=== PATIENT | male | born 1940 | race Caucasian/White ===

== ENCOUNTER 2019-02-03 14:40 | Emergency (ER) | payer MEDICARE, OTHER ==
[~2019-02-03] VITALS: Ht 175.3 cm; Wt 90.7 kg
[~2019-02-03 14:40] MED LIST: ASPI-605 PO; DILT120T14 PO; ESOM40CA PO; FURO-144 PO; LUBI24CA5 PO; METF-440 PO; OXYC-454 PO; POTA20PA40 PO; ROSU10TA2 PO
--- NOTE | 2019-02-03 15:16 | NUR ---
PT CAME INTO ER STATING THAT HE TRIPPED ON HIS SHOE LACE IN FRONT OF HIS FRONT DOOR OF HIS HOUSE. PT IS STATING PAIN UNDER HIS ARMPIT ON THE RIB SIDE. PT IS AAOX4. AMBULATORY. NO SOB. NOT IN ANY DISTRESS. WILL CONTINUE TO MONITOR.
[2019-02-03] MEDS ORDERED: MORPHINE SULFATE INJ 2 MG/ML DISP.SYRIN ONE (15:27)
[2019-02-03] MEDS ORDERED: MORPHINE SULFATE INJ 4 MG/ML DISP.SYRIN ONE (15:28)
[2019-02-03] MEDS ORDERED: MORPHINE SULFATE INJ 2 MG/ML DISP.SYRIN IM ONE (15:30)
--- NOTE | 2019-02-03 16:50 | NUR ---
Patient discharged to home in stable condition. Written and verbal after care instructions given. Patient verbalizes understanding of instruction.
[2019-02-03 16:51] VITALS: BP 133/71
== END 2019-02-03 16:51 | disposition home or self-care (01) ==
LOC: ER 14:42
DX: S00.03XA Contusion of scalp, initial encounter (principal); S20.212A Contusion of left front wall of thorax, initial encounter; I10 Essential (primary) hypertension; E11.9 Type 2 diabetes mellitus without complications; Z98.890 Other specified postprocedural states; Z79.899 Other long term (current) drug therapy; Z79.84 Long term (current) use of oral hypoglycemic drugs; Z79.82 Long term (current) use of aspirin; W01.0XXA Fall on same level from slipping, tripping and stumbling without subsequent striking against object, initial encounter; Y93.89 Activity, other specified; Y92.89 Other specified places as the place of occurrence of the external cause; Y99.8 Other external cause status
CPT/HCPCS: 70450; 71100; 96372; 99284; J2270 ×2

== ENCOUNTER 2021-11-03 22:22 | Inpatient (IN) | payer MEDICARE, BC ==
[~2021-11-03] VITALS: Ht 175.3 cm; Wt 108.4 kg
[~2021-11-03 22:22] MED LIST changes: -OXYC-454 PO; +OXYC1TAB12 PO
--- NOTE | 2021-11-03 23:40 | NUR ---
[id number] FROM HOME C/O [facility] TRIP AND FALL HIT LEFT ELBOW WITH LAC. TDAP NOT UTD, - HEAD TRAUMA, - LOSS OF CONSCIOUSNESS AND NOT TAKING BLOOD THINNER. PATIENT IS ALERT, ORIENTED X4. VITALS CHECKED. DRESSING APPLIED TO AFFECTED AREA
--- NOTE | 2021-11-03 23:43 | NUR ---
SEEN AND EXAMINED BY DR CARRILLO AT BEDSIDE.
[2021-11-03] MEDS ORDERED: TDAP [DIPH/PERTUSSIS/TET] 0.5 ML VIAL IM ONE (23:45)
--- NOTE | 2021-11-03 23:47 | NUR ---
XRAY DONE AT BEDSIDE.
[2021-11-04] MEDS ORDERED: TDAP [DIPH/PERTUSSIS/TET] 0.5 ML VIAL IM ONE
[2021-11-04] MEDS ORDERED: HYDROCODONE/APAP 5/325MG TABLET PO ONE
[2021-11-04] MEDS ORDERED: HYDROCODONE/APAP 5/325MG TABLET ONE (00:04)
--- NOTE | 2021-11-04 01:00 | NUR ---
consent obtained for close reduction of left shoulder w/ moderated sedation
--- NOTE | 2021-11-04 01:03 | NUR ---
IV LINE ESTABLISHED, RAC20G
[2021-11-04] MEDS ORDERED: LIDOCAINE 1%-EPI 1:100,000 20 ML VIAL ONE (01:13)
--- NOTE | 2021-11-04 01:35 | NUR ---
CHATO [phone]. CALL WHEN PATIENT IS GETTING DISCHARGED.
[2021-11-04] MEDS ORDERED: PROPOFOL 20 ML IV ONE (01:59)
--- NOTE | 2021-11-04 02:02 | NUR ---
PATIENT FOR CLOSE REDUCTION OF LEFT SHOULDER UNDER MODERATE SEDATION. CONSENT SIGNED.
--- NOTE | 2021-11-04 02:04 | NUR ---
INITIAL VITALS CHECKED. BP 124/57mmHg, HR 61bpm, RR 20cpm ON OXYGEN INC VIA NC AT 2lpm SATURATING 97%
--- NOTE | 2021-11-04 02:05 | NUR ---
PROPOFOL 60MG IV PUSH GIVEN.
--- NOTE | 2021-11-04 02:05 | NUR ---
CLOSE REDUCTION ATTEMPTED BY DR CARRILLO. PATIENT BECAME HALF AWAKE AND TRYING TO RESIST.
--- NOTE | 2021-11-04 02:06 | NUR ---
ADDITIONAL 20MG OF PROPOFOL GIVEN. DR CARRILLO TRIED TO DO CLOSE REDUCTION AGAIN.
--- NOTE | 2021-11-04 02:08 | NUR ---
CLOSE REDUCTION UNSUCCESSFUL. DR CARRILLO DECIDED TO ADMIT THE PATIENT. LATEST VITALS BP 131/68mmHg, HR 59bpm, RR 18cpm SATURATING 96%.
--- NOTE | 2021-11-04 02:13 | NUR ---
Jose ayers in ED - 11/04/21 at 0214 by YANETH REPORT GIVEN TO [facility] [id number].
--- NOTE | 2021-11-04 02:27 | NUR ---
CALLED CHATO. MADE HER AWARE THAT WE WILL KEEP PT FOR ADMISSION. SHE IS OK WITH IT.
[2021-11-04] MEDS ORDERED: MAG HYDROX/AL HYDROX/SIMETH 30 ML UDC PO PRN (02:30)
[2021-11-04] MEDS ORDERED: ACETAMINOPHEN 325 MG TABLET PO PRN (02:30)
[2021-11-04] MEDS ORDERED: Z GUARD REMEDY 4 OZ OINT TP PRN (02:30)
[2021-11-04] MEDS ORDERED: PROPOFOL 200 MG/20 ML VIAL IV ONE (02:30)
[2021-11-04] MEDS ORDERED: MAGNESIUM HYDROXIDE 30 ML UDC PO PRN (02:30)
[2021-11-04] MEDS ORDERED: IV NS 0.9% 1,000 ML IV PRN (02:30)
--- NOTE | 2021-11-04 02:32 | NUR ---
PT IS AWAKE AND HUNGRY. SANDWICH OFFERED.
[2021-11-04 02:50] LABS: BASOPHILS % (AUTO) 0.2 % (0.0-2.0); EOSINOPHILS % (AUTO) 0.6 % (0.0-6.0); HEMATOCRIT 40 % (39-51); HEMOGLOBIN 13.1 g/dL (13.5-17.5); LYMPHOCYTES # (AUTO) 1.2 K/uL (0.8-4.8); LYMPHOCYTES % (AUTO) 6.7 % (20.0-44.0); MEAN CORPUSCULAR HGB CONC 33 g/dl (31.0-36.0); MEAN CORPUSCULAR VOLUME 91 fL (80-96); MONOCYTES # (AUTO) 1.4 K/uL (0.1-1.30); MONOCYTES % (AUTO) 7.4 % (2.0-12.0); NEUTROPHILS # (AUTO) 15.6 K/uL (1.8-8.9); NEUTROPHILS % (AUTO) 85.1 % (43.0-81.0); PLATELET COUNT (AUTO) 241 K/uL (150-450); RED BLOOD CELL COUNT(AUTO) 4.33 MIL/uL (4.5-6.0); WHITE BLOOD COUNT (AUTO) 18.4 K/uL (4.3-11.0)
[2021-11-04 03:01] LABS: CALCIUM, SERUM 8.5 mg/dL (8.5-10.1); CARBON DIOXIDE 34 mmol/L (21-32); CHLORIDE 101 mmol/L (98-107); CREATININE 1.2 mg/dL (0.6-1.3); GLUCOSE 124 mg/dL (74-106); POTASSIUM 4.3 mmol/L (3.5-5.1); SODIUM SERUM 141 mmol/L (136-145); UREA NITROGEN, BLOOD 21 mg/dL (7-18)
[2021-11-04 03:08] LABS: ALANINE AMINOTRANSFERASE 20 U/L (12-78); ALBUMIN 3.5 g/dL (3.4-5.0); ALKALINE PHOSPHATASE 63 U/L (46-116); ASPARTATE AMINOTRANSFERASE 16 U/L (15-37); BILIRUBIN,TOTAL 0.5 mg/dL (0.2-1.0)
--- NOTE | 2021-11-04 03:12 | NUR ---
ROOM 325 MED SURG
[2021-11-04] MEDS ORDERED: HYDROMORPHONE 1 MG/1 ML DISP.SYRIN ONE (05:04)
--- NOTE | 2021-11-04 05:07 | NUR ---
REPORT GIVEN TO [place]ER[place] PATIÑO FOR JAC
[2021-11-04] MEDS: HYDROMORPHONE INJ 2 MG/ML DISP.SYRIN IV PRN ×2 (05:08→09:56)
--- NOTE | 2021-11-04 05:57 | NUR ---
TRANSFERRED PATIENT TO ROOM.
[2021-11-04 06:00] VITALS: BP 144/62
--- NOTE | 2021-11-04 06:00 | NUR ---
rn admission notes Received Pt from ER nurse. Pt is alert and orientedX4. On room air. No SOB. No S/S of distress noted. VS is stable. Noted L arm sling and L sided weakness from GLF. Iv site at RAC# 20 is clean, intact and flushes well. Skin assessment is done and performed. Pictures are taken and placed at Pt's chart. Pt's belonging was checked by HAN Montes De Oca and placed at Pt' chart. [place] Pt to the room and the use of call light. Safety precautions is maintained. Bed at low position, brakes locked, side rails upX2, hob elevated, urinal at the bedside and call light is within reach. will continue to monitor.
--- NOTE | 2021-11-04 07:00 | NUR ---
RN notes Transferred JAC to am nurse.
[2021-11-04 07:07] VITALS: BP 144/62
--- NOTE | 2021-11-04 08:17 | NUR ---
RN OPENING NOTE PATIENT AWAKE IN BED RESTING. A/O X4. NO S/S OF PAIN NOTED AT THIS TIME. ON ROOM AIR, NO DISTRESS OR SHORTNESS OF BREATH NOTED. IV ACCESS RAC #20G, INTACT, PATENT AND FLUSHING WELL. FALL AND SAFETY MEASURES IN PLACE, BED ALARM ON, BED IN LOW AND LOCK POSITION, CALL LIGHT AND TABLE WITHIN EASY REACH, SIDE RAILS UP X2. WILL CONTINUE TO MONITOR.
[2021-11-04] MEDS ORDERED: Medication Not On Formulary EA (Lubiprostone (Amitiza) 24 MCG) PO SCH (09:00)
[2021-11-04] MEDS: ASPIRIN EC 81 MG TABLET.DR PO SCH (09:43)
[2021-11-04] MEDS: PANTOPRAZOLE 40 MG TABLET.DR PO SCH (09:43)
[2021-11-04] MEDS ORDERED: LORAZEPAM 0.5 MG TABLET PO PRN (10:30)
[2021-11-04] MEDS ORDERED: DEXTROSE 50%-WATER 50 ML DISP.SYRIN IV PRN (10:30)
[2021-11-04] MEDS: BLOOD SUGAR DIAGNOSTIC 1 EACH STRIP IN SCH ×3 (12:34→21:41)
[2021-11-04] MEDS: oxyCODONE/APAP (5/325 MG) 1 UDTAB TABLET PO PRN (17:46)
--- NOTE | 2021-11-04 18:45 | NUR ---
RN CLOSING NOTE PATIENT AWAKE IN BED RESTING. A/O X4. NO S/S OF PAIN NOTED AT THIS TIME. ON ROOM AIR, NO DISTRESS OR SHORTNESS OF BREATH NOTED. NO IV ACCESS, PATIENT REMOVED IV. SCHEDULE MEDICATIONS ADMINISTERED. PATIENT WAS TURNED AND REPOSITION PER PROTOCOL. WOUND CARE IMPLEMENTED. FALL AND SAFETY MEASURES IN PLACE, BED ALARM ON, BED IN LOW AND LOCK POSITION, CALL LIGHT AND TABLE WITHIN EASY REACH, SIDE RAILS UP X2. WILL ENDORSE TO CHICKEN TENDER.
[2021-11-04] MEDS: INSULIN REGULAR, HUMAN 100 UNIT/ML 3 ML VIAL SQ PRN (18:59)
--- NOTE | 2021-11-04 19:45 | NUR ---
MS RN OPENING NOTE RECEIVED PATIENT AWAKE IN BED. A/O X4 AND ABLE TO MAKE NEEDS KNOWN. AT BEDSIDE. PT STABLE ON ROOM AIR. NO SOB OR S/S OF RESPIRATORY DISTRESS. BREATHING EVEN AND UNLABORED. IV ACCESS R HAND 20 GAUGE, INTACT AND PATENT. SAFETY PRECAUTIONS IN PLACE. BED IN LOWEST LOCKED POSITION, HOB ELEVATED, SIDE RAILS UP X3, BED ALARM ON, AND CALL LIGHT AND TABLE WITHIN REACH. ALL NEEDS MET AT THIS TIME.
[2021-11-04 20:00] VITALS: BP 167/71
[2021-11-04] MEDS: DILTIAZEM HCL CD 120 MG PO SCH (21:26)
[2021-11-04] MEDS: ATORVASTATIN 10 MG TABLET PO SCH (21:26)
[2021-11-05] MEDS: HYDROMORPHONE INJ 2 MG/ML DISP.SYRIN IV PRN ×3 (00:47→20:36)
--- NOTE | 2021-11-05 00:47 | NUR ---
RN NOTE PT COMPLAINED OF PAIN 10/10 OF LEFT SHOULDER AND LEFT HIP. ADMINISTERED DILAUDID 1 MG FOR SEVERE PAIN ORDERED. MADE COMFORTABLE IN BED. ALL NEEDS MET AT THIS TIME.
--- NOTE | 2021-11-05 01:06 | NUR ---
RN NOTE PT NPO POST MIDNIGHT. NEW ORDERS FROM MASTER OCEAN YACHT [facility] FOR NS @ 90 ML/HR, NOTED AND CARRIED OUT.
[2021-11-05] MEDS: IV NS 0.9% 1,000 ML IV PRN ×2 (01:22→18:07)
[2021-11-05 05:54] LABS: BASOPHILS % (AUTO) 0.3 % (0.0-2.0); EOSINOPHILS % (AUTO) 0.7 % (0.0-6.0); HEMATOCRIT 36 % (39-51); HEMOGLOBIN 12.2 g/dL (13.5-17.5); LYMPHOCYTES % (AUTO) 6.4 % (20.0-44.0); MEAN CORPUSCULAR HGB CONC 34 g/dl (31.0-36.0); MEAN CORPUSCULAR VOLUME 91 fL (80-96); MONOCYTES % (AUTO) 6.6 % (2.0-12.0); NEUTROPHILS # (AUTO) 13.1 K/uL (1.8-8.9); PLATELET COUNT (AUTO) 216 K/uL (150-450); RED BLOOD CELL COUNT(AUTO) 3.98 MIL/uL (4.5-6.0); WHITE BLOOD COUNT (AUTO) 15.2 K/uL (4.3-11.0)
[2021-11-05] MEDS: BLOOD SUGAR DIAGNOSTIC 1 EACH STRIP IN SCH ×4 (06:40→22:49)
--- NOTE | 2021-11-05 07:04 | NUR ---
MS RN CLOSING NOTE PATIENT AWAKE IN BED. A/O X4 WITH EPISODES OF CONFUSION AND ABLE TO MAKE NEEDS KNOWN. PT STABLE ON ROOM AIR. NO SOB OR S/S OF RESPIRATORY DISTRESS. BREATHING EVEN AND UNLABORED. IV ACCESS R HAND 20 GAUGE, INTACT AND PATENT, RUNNING NS @ 90 ML/HR. KEPT NPO AFTER MIDNIGHT. ALL DUE MEDS GIVEN ORDERED. SAFETY PRECAUTIONS IN PLACE AT ALL TIMES. BED IN LOWEST LOCKED POSITION, HOB ELEVATED, SIDE RAILS UP X3, BED ALARM ON, AND CALL LIGHT AND TABLE WITHIN REACH. ALL NEEDS MET AT THIS TIME AND WILL ENDORSE TO ONCOMING NURSE FOR JAC.
[2021-11-05 07:06] LABS: CALCIUM, SERUM 8.4 mg/dL (8.5-10.1); CARBON DIOXIDE 26 mmol/L (21-32); CHLORIDE 103 mmol/L (98-107); CREATININE 0.8 mg/dL (0.6-1.3); GLUCOSE 130 mg/dL (74-106); PHOSPHORUS 2.8 mg/dL (2.5-4.9); POTASSIUM 3.8 mmol/L (3.5-5.1); SODIUM SERUM 138 mmol/L (136-145); UREA NITROGEN, BLOOD 12 mg/dL (7-18)
[2021-11-05 08:00] VITALS: BP 140/62
--- NOTE | 2021-11-05 08:00 | NUR ---
RN OPENING NOTE PATIENT RECEIVED IN BED, AO X 5, ABLE TO RESPONDS ALL STIMULI. IN NO ACUTE DISTRESS NOTED. RESPIRATORY EVEN AND UNLABORED ON ROOM AIR. SKIN IS WARM TO TOUCH, KEEP CLEAN/DRY. KEPT ELEVATED HOB FOR ENSURE AIRWAY AND ASPIRATION PRECAUTION, ALSO LOWEST POSITION OF THE BED, S/R UP X 3, BED ALARM IS ON AT ALL THE TIMES. ALL SAFETY PRECAUTION APPLIED. CALL LIGHT WITHIN REACH, WILL CONTINUE TO MONITOR.
[2021-11-05] MEDS: PANTOPRAZOLE 40 MG TABLET.DR PO SCH (08:21)
[2021-11-05] MEDS: ASPIRIN EC 81 MG TABLET.DR PO SCH (08:26)
--- NOTE | 2021-11-05 09:54 | NUR ---
PATIENT AO X 4, SINGED ON CONSENT FOR LEFT HIP PROCEDURE TODAY SCHEDULED.
--- NOTE | 2021-11-05 10:00 | NUR ---
MS RN NOTE PROCEDURE CANCELLED AND VERIFIED WITH CYCLE DIRECTOR JANETH AND NURSE MANUFACTURING MAINTENANCE MECHANIC. PATIENT STARTED ON PREVIOUS DIET. ENDORSED ACCORDINGLY.
[2021-11-05] MEDS ORDERED: METO25TA20 PO (11:40)
[2021-11-05] MEDS ORDERED: BUME1TAB9 PO (11:40)
[2021-11-05] MEDS ORDERED: DRON400T6 PO (11:40)
[2021-11-05] MEDS ORDERED: CITA20TA16 PO (11:40)
[2021-11-05] MEDS ORDERED: RIVA10TA PO (11:40)
[2021-11-05] MEDS ORDERED: CITA10TA9 PO (11:41)
[2021-11-05] MEDS: INSULIN REGULAR, HUMAN 100 UNIT/ML 3 ML VIAL SQ PRN ×2 (12:06→17:05)
--- NOTE | 2021-11-05 18:42 | NUR ---
N CLOSING NOTE PATIENT IN BED RESTING. FAMILY MEMBER AT BED SIDE. IN NO ACUTE DISTRESS NOTED. RESPIRATORY EVEN AND UNLABORED ON ROOM AIR. SKIN IS WARM TO TOUCH, KEEP CLEAN/DRY. KEPT ELEVATED HOB FOR ENSURE AIRWAY AND ASPIRATION PRECAUTION, BED IN LOWEST POSITION AND LOCK. BED ALARM IS ON AT ALL THE TIMES. ALL SAFETY MEASURED IN PLACED. CALL LIGHT WITHIN REACH, WILL ENDORSED TO NEXT SHIFT.
--- NOTE | 2021-11-05 19:15 | NUR ---
MS RN OPENING NOTE RECEIVED PATIENT RESTING IN BED; AWAKE, ALERT AND ORIENTED X4. AT BEDSIDE. BREATHING EVEN AND NONLABORED. NOT IN ANY FORM OF RESPIRATORY DISTRESS. ON ROOM AIR; TOLERATING WELL. WITH IV ACCESS ON RIGHT FOREARM G#18 INFUSING WITH NS 1L REGULATED @ 90ML/HR; PATENT, INTACT AND FLUSHES WELL. ABLE TO MAKE NEEDS KNOWN. SAFETY PRECAUTIONS IMPLEMENTED: HEAD OF BED ELEVATED, CALL LIGHT AND TABLE WITHIN REACH, SIDE RAILS UP X2, BED IN LOWEST LOCKED POSITION. WILL CONTINUE TO MONITOR.
[2021-11-05 20:00] VITALS: BP 155/59
[2021-11-05] MEDS: ATORVASTATIN 10 MG TABLET PO SCH (22:07)
[2021-11-05] MEDS: ZOLPIDEM TARTRATE 5 MG TABLET PO PRN (22:12)
--- NOTE | 2021-11-05 22:12 | NUR ---
MS RN NOTE PATIENT VERBALIZED HE HAS TROUBLE FALLING ASLEEP AND ASK IF HE CAN HAVE A PILL TO MAKE HER SLEEP. AMBIEN 1 TAB GIVEN PO ORDERED. WILL CONTINUE TO MONITOR
[2021-11-05] MEDS: DILTIAZEM HCL CD 120 MG PO SCH (22:25)
--- NOTE | 2021-11-06 02:55 | NUR ---
MS PATIÑO NOTE ENDORSED TO KAYLYN NEFF FOR JAC
[2021-11-06] MEDS: ONDANSETRON HCL/PF 4 MG/2 ML VIAL IVP PRN ×2 (03:00→18:47)
[2021-11-06] MEDS: IV NS 0.9% 1,000 ML IV PRN (05:17)
[2021-11-06] MEDS: BLOOD SUGAR DIAGNOSTIC 1 EACH STRIP IN SCH ×4 (06:32→22:00)
[2021-11-06] MEDS: INSULIN REGULAR, HUMAN 100 UNIT/ML 3 ML VIAL SQ PRN (06:32)
--- NOTE | 2021-11-06 06:56 | NUR ---
MS RN CLOSING NOTES PATIENT IN BED SLEEPING COMFORTABLY. BREATHING EVEN AND NONLABORED. NOT IN ANY FORM OF RESPIRATORY DISTRESS. ON ROOM AIR; TOLERATING WELL. WITH IV ACCESS ON RIGHT FOREARM G#18 INFUSING WITH NS 1L REGULATED @ 90ML/HR; PATENT, INTACT AND FLUSHES WELL. ABLE TO MAKE NEEDS KNOWN. NO EPISODE OF NAUSEA AND VOMITING AT THIS TIME. SAFETY PRECAUTIONS IMPLEMENTED: HEAD OF BED ELEVATED, CALL LIGHT AND TABLE WITHIN REACH, SIDE RAILS UP X2, BED IN LOWEST LOCKED POSITION. WILL ENDORSE TO DAY SHIFT NURSE FOR CONTINUITY OF CARE.
--- NOTE | 2021-11-06 07:30 | NUR ---
MS RN OPENING NOTES RECEIVED PATIENT IN BED , AWAKE, ALERT AND ORIENTED X4. ROOM AIR , NO SOB OR DISTRESS NOTED . WITH IV ACCESS ON RIGHT FOREARM G#18 INFUSING WITH NS 1L REGULATED @ 90ML/HR; PATENT, INTACT AND FLUSHES WELL. ABLE TO MAKE NEEDS KNOWN. SAFETY PRECAUTIONS PROVIDED : HEAD OF BED ELEVATED, CALL LIGHT AND TABLE WITHIN REACH, SIDE RAILS UP X2, BED IN LOWEST LOCKED POSITION. WILL CONTINUE TO MONITOR.
[2021-11-06] MEDS: PANTOPRAZOLE 40 MG TABLET.DR PO SCH (07:44)
[2021-11-06] MEDS: ASPIRIN EC 81 MG TABLET.DR PO SCH (09:22)
[2021-11-06] MEDS: oxyCODONE/APAP (5/325 MG) 1 UDTAB TABLET PO PRN (16:45)
--- NOTE | 2021-11-06 17:52 | NUR ---
SHIFT SUMMARY PATIENT IS A/O X4. ON ROOM AIR, SATURATING WELL. ALL NEEDS HAVE BEEN MET AND ATTENDED. NWB ON LUE. ARM SLING ON LEFT ARM AT ALL TIMES. TWB ON RLE WITH NO ACTIVE ABDUCTION. AMBULATED VIA WALKER WITH PT TODAY. PAIN MANAGED WITH PERCOCET. IV ACCESS ON R FA #18 G, NS AT 90 ML/ HR. PLAN FOR SURGERY ON SATURDAY WITH DR. PATEL. AUTHORIZATION FOR DISCLOSURE OF INFORMATION HAS BEEN SENT TO [facility]. SAFETY MEASURE MAINTAINED. BED IN LOWEST POSITION, BRAKE LOCKED. SIDE RAILS UP X2. CALL LIGHT WITHIN REACH. WILL ENDORSE CONTINUITY OF CARE TO ONCOMING SHIFT.
--- NOTE | 2021-11-06 18:50 | NUR ---
RN NOTE PATIENT VOMITTED X 1 AND ZOFRAN GIVEN 4MG IV
[2021-11-06 20:00] VITALS: BP 136/75
--- NOTE | 2021-11-06 20:26 | NUR ---
MS RN OPENING NOTES: RECEIVED PATIENT AWAKE IN BED, BED IN LOW POSITION CALL LIGHTS WITHIN REACH, NO COMPLAIN OF PAIN AND DISCOMFORT AT THIS TIME, ON ROOM AIR SATURATING WELL, PATIENT WITH RIGHT HAND SLING DUE TO HUMERUS FX, PATIENT WITH IV LINE AT RFA#18 WITH ONGOING NSS@90ML/HR INFUSING WELL, PATIENT KEPT CLEAN AND DRY ALL NEEDS MET, WILL CONTINUE TO MONITOR.
[2021-11-06] MEDS: ATORVASTATIN 10 MG TABLET PO SCH (22:18)
[2021-11-06] MEDS: DILTIAZEM HCL CD 120 MG PO SCH (22:18)
--- NOTE | 2021-11-06 23:08 | NUR ---
RN NOTES: BLOOD SUGAR-120/ NO INSULIN GIVEN PER SLIDING SCALE
[2021-11-07] MEDS: IV NS 0.9% 1,000 ML IV PRN (05:19)
--- NOTE | 2021-11-07 06:06 | NUR ---
MS RN CLOSING NOTES: PATIENT SLEEP IN BED COMFORTABLY, AROUSABLE TO VERBAL STIMULI, BED IN LOW POSITION CALL LIGHTS WITHIN REACH, ON ROOM AIR SATURATING WELL, WITH ON GOING IV LINE AT RFA#18 WITH NSS @90ML/HR INFUSING WELL,, PATIENT HAVE SLING ON RIGHT ARM REMAINS INTACT, PATIENT KEPT CLEAN AND DRY ALL NEEDS MET, ENDORSE TO INCOMING SHIFT.
[2021-11-07] MEDS: BLOOD SUGAR DIAGNOSTIC 1 EACH STRIP IN SCH ×4 (07:30→21:19)
--- NOTE | 2021-11-07 07:30 | NUR ---
MS RN OPENING NOTES: RECEIVED PATIENT AWAKE ON BED AND A/O X4. ON ROOM AIR TOLERATING WELL. NO SOB NOTED. NOT IN DISTRESS. WITH NO COMPLAINTS OF PAIN OR DISCOMFORT AT THIS TIME. WITH IV ACCESS AT THE RIGHT FOREARM G18 WITH IVF NS AT 90ML/HR INFUSING WELL. PATIENT WITH RIGHT HAND SLING DUE TO HUMERUS FX. SAFETY MEASURES IN PLACED. CALL LIGHT WITHIN REACH. BED ON LOWEST LOCKED POSITION. SIDE RAILS UP X2. WILL CONTINUE TO MONITOR.
--- NOTE | 2021-11-07 07:39 | NUR ---
RN NOTES: BLOOD SUGAR-92 NO INSULIN GIVEN PER SLIDING SCALE
[2021-11-07 08:00] VITALS: BP 134/61
[2021-11-07] MEDS: PANTOPRAZOLE 40 MG TABLET.DR PO SCH (08:15)
[2021-11-07] MEDS: ASPIRIN EC 81 MG TABLET.DR PO SCH (08:15)
[2021-11-07 16:00] VITALS: BP 98/64
[2021-11-07] MEDS: INSULIN REGULAR, HUMAN 100 UNIT/ML 3 ML VIAL SQ PRN ×2 (17:05→21:22)
--- NOTE | 2021-11-07 18:48 | NUR ---
MS RN CLOSING NOTES: PATIENT AWAKE ON BED AND A/O X4. ON ROOM AIR TOLERATING WELL. NO SOB NOTED. NOT IN DISTRESS. WITH NO COMPLAINTS OF PAIN OR DISCOMFORT AT THIS TIME. WITH IV ACCESS AT THE RIGHT FOREARM G18 WITH IVF NS AT 90ML/HR INFUSING WELL. PATIENT WITH RIGHT HAND SLING DUE TO HUMERUS FX. DUE MEDS GIVEN. SAFETY MEASURES IN PLACED. CALL LIGHT WITHIN REACH. BED ON LOWEST LOCKED POSITION. SIDE RAILS UP X2. WILL ENDORSE TO NEXT SHIFT FOR JAC.
--- NOTE | 2021-11-07 19:41 | NUR ---
RN OPENING NOTE PATIENT ASLEEP IN BED. A/OX4. NO S/S OF DISTRESS, BREATHING W/O DIFFICULTY ON ROOM AIR. RFA #18 INTACT AND PATENT W/ NS 90ML/HR. SAFETY MEASURES IN PLACE: BED LOCKED AND AT LOWEST POSITION, RAILS UP X2, CALL ACUÑA WITHIN REACH. WILL CONTINUE TO MONITOR PATIENT.
[2021-11-07 20:00] VITALS: BP 160/81
[2021-11-07] MEDS: DILTIAZEM HCL CD 120 MG PO SCH (21:20)
[2021-11-07] MEDS: ATORVASTATIN 10 MG TABLET PO SCH (21:22)
[2021-11-07] MEDS: ZOLPIDEM TARTRATE 5 MG TABLET PO PRN (22:11)
[2021-11-08 06:37] LABS: BASOPHILS # (AUTO) 0.1 K/uL (0.0-0.2); BASOPHILS % (AUTO) 0.6 % (0.0-2.0); EOSINOPHILS % (AUTO) 5.1 % (0.0-6.0); HEMATOCRIT 33 % (39-51); HEMOGLOBIN 11.2 g/dL (13.5-17.5); LYMPHOCYTES # (AUTO) 1.1 K/uL (0.8-4.8); LYMPHOCYTES % (AUTO) 11.5 % (20.0-44.0); MEAN CORPUSCULAR HGB CONC 34 g/dl (31.0-36.0); MEAN CORPUSCULAR VOLUME 90 fL (80-96); MONOCYTES # (AUTO) 1.1 K/uL (0.1-1.30); MONOCYTES % (AUTO) 10.8 % (2.0-12.0); NEUTROPHILS # (AUTO) 7.1 K/uL (1.8-8.9); PLATELET COUNT (AUTO) 227 K/uL (150-450); RED BLOOD CELL COUNT(AUTO) 3.61 MIL/uL (4.5-6.0); WHITE BLOOD COUNT (AUTO) 9.9 K/uL (4.3-11.0)
--- NOTE | 2021-11-08 06:41 | NUR ---
RN CLOSING NOTE PATIENT AWAKE IN BED. A/OX2. NO S/S OF DISTRESS, BREATHING W/O DIFFICULTY ON ROOM AIR. RFA #18 INTACT AND PATENT W/ NS 90ML/HR. SAFETY MEASURES IN PLACE: BED LOCKED AND AT LOWEST POSITION, RAILS UP X2, CALL ACUÑA WITHIN REACH. WILL ENDORSE TO THE NEXT SHIFT FOR JAC.
[2021-11-08] MEDS: INSULIN REGULAR, HUMAN 100 UNIT/ML 3 ML VIAL SQ PRN (06:46)
[2021-11-08] MEDS: BLOOD SUGAR DIAGNOSTIC 1 EACH STRIP IN SCH ×2 (06:46→12:26)
[2021-11-08 07:13] LABS: ALBUMIN 2.5 g/dL (3.4-5.0); BILIRUBIN,TOTAL 1.1 mg/dL (0.2-1.0); CALCIUM, SERUM 8.4 mg/dL (8.5-10.1); CREATININE 0.7 mg/dL (0.6-1.3); MAGNESIUM 2.1 mg/dL (1.8-2.4); PHOSPHORUS 4.3 mg/dL (2.5-4.9); POTASSIUM 3.6 mmol/L (3.5-5.1); TOTAL PROTEIN, SERUM 6.1 g/dL (6.4-8.2)
[2021-11-08] MEDS: PANTOPRAZOLE 40 MG TABLET.DR PO SCH (07:57)
[2021-11-08 08:00] VITALS: BP 143/55
--- NOTE | 2021-11-08 08:18 | NUR ---
MS RN OPENING NOTES PATIENT ASLEEP IN BED. A/OX2. NO S/S OF DISTRESS, BREATHING EVENLY AND UNLABORED ON ROOM AIR. RFA #18 INTACT AND PATENT W/ NS 90ML/HR. SAFETY MEASURES IN PLACE: BED LOCKED AND AT LOWEST POSITION, RAILS UP X2, CALL ACUÑA WITHIN REACH. WILL CONTINUE TO MONITOR PATIENT.
[2021-11-08] MEDS: ASPIRIN EC 81 MG TABLET.DR PO SCH (09:54)
[2021-11-08] MEDS: oxyCODONE/APAP (5/325 MG) 1 UDTAB TABLET PO PRN (10:00)
[2021-11-08] MEDS ORDERED: CEPH250S PO (11:57)
[2021-11-08] MEDS ORDERED: CEPHALEXIN MONOHYDRATE 500 MG CAPSULE PO SCH (12:00)
[2021-11-08] MEDS: IV NS 0.9% 1,000 ML IV PRN (12:27)
[2021-11-08 16:00] VITALS: BP 141/70
--- NOTE | 2021-11-08 16:50 | NUR ---
DISCHARGE NOTE RECEIVED ORDER FOR DISCHARGE .PATIENT IS ALERT ORIENTED X 3 ABLE TO MAKE NEEDS KNOWN. STABLE ON ROOM AIR BREATHING EVENLY AND UNLABORED NO SOB OR S/SX OF DISTRESS NOTED . PATIENT DENIES ANY PAIN AT THIS MOMENT.SLING ON LEFT ARM IN-PLACED. DC INSTRUCTIONS GIVEN TO PATIENT AND , BOTH VERBALIZED UNDERSTANDING. REPORT GIVEN TO CHANEL PATIÑO OF [facility] @ [id number]. ALL BELONGINGS ACCOUNTED FOR SIGNED BELONGING SHEET. IV ACCESS REMOVED . PRESSURE DRESSING APPLIED NO SIGNS OF BLEEDING NOTED.PHOTOS OF SKIN TEARS AND BRUISES TAKEN AND PLACED IN CHART. EXIT CARE FOLDER GIVEN TO EMT. PATIENT LEFT IN STABLE CONDITION VIA AMBULANCE WITH 3 EMT'S PRESENT.
== END 2021-11-08 17:00 | DRG 561 ==
LOC: ER 11-04 00:05 → MED 11-04 03:45
PROVIDERS: ADMIT Nurse Practitioner Acute Care
PROC: 0HQEXZZ Repair Left Lower Arm Skin, External Approach (ICD-10-PCS; principal; 2021-11-04)
PROC: 0XJ3XZZ Inspection of Left Shoulder Region, External Approach (ICD-10-PCS; 2021-11-04)
DX: T84.028A Dislocation of other internal joint prosthesis, initial encounter (principal); M97.02XA Periprosthetic fracture around internal prosthetic left hip joint, initial encounter; W01.0XXA Fall on same level from slipping, tripping and stumbling without subsequent striking against object, initial encounter; S51.012A Laceration without foreign body of left elbow, initial encounter; E66.9 Obesity, unspecified; E78.5 Hyperlipidemia, unspecified; I10 Essential (primary) hypertension; I48.91 Unspecified atrial fibrillation; Z79.82 Long term (current) use of aspirin; M19.90 Unspecified osteoarthritis, unspecified site; Z79.84 Long term (current) use of oral hypoglycemic drugs; Z68.35 Body mass index [BMI] 35.0-35.9, adult; W19.XXXA Unspecified fall, initial encounter; Y83.8 Other surgical procedures as the cause of abnormal reaction of the patient, or of later complication, without mention of misadventure at the time of the procedure; Y92.009 Unspecified place in unspecified non-institutional (private) residence as the place of occurrence of the external cause; Z20.822 Contact with and (suspected) exposure to COVID-19; Z96.651 Presence of right artificial knee joint; R73.03 Prediabetes
CPT/HCPCS: 36415; 73030-TC; 73070-TC; 73200-TC; 73502; 73552; 73560-TC; 73610-TC; 73700-TC; 80048-TC; 80053-TC; 82962-TC; 83735-TC; 84100-TC; 85025-TC; 90715; 97110-TC; 97116-TC; 97530-TC; A4565; A6253; A6403; C9803; G0378; J1170; J1815; J2405; J2704; J3490; J7030